=== PATIENT | female | born 2000 | race Caucasian/White ===

== ENCOUNTER 2024-05-05 16:22 | Emergency (ER) | payer OTHER, SELFPAY ==
[2024-05-05] VITALS (15 sets, daily range): BP systolic 96–137; BP diastolic 53–72; PULSE 58–93; RESP 16; TEMP 36.6; O2SAT 97–100; BMI 27.4
--- NOTE | 2024-05-05 19:52 | ED_ITS ---
HPI - General Adult General Chief complaint: Urogenital-Female Stated complaint: Severe Pain, Ovarian Cyst Time Seen by Provider: 05/05/24 19:52 Source: patient and family Mode of arrival: Ambulatory History of Present Illness HPI narrative: 23-year-old female with right-sided abdominopelvic pain, seen yesterday would be hospital with ultrasound showing hemorrhagic right-sided cyst, has increasing pain since that time. Also is on her period, believes her test was negative yesterday. No fevers or chills. No dysuria frequency of urination. No flank pain. She does not take blood thinner medications. Related Data Allergies Allergy/AdvReac Type Severity Reaction Status Date / Time Cephalosporins Allergy Verified 05/05/24 16:25 Penicillins Allergy Verified 05/05/24 16:25 Patient History Social History Smoking Status: Never smoker Smoking Status: Never smoker Exam Narrative Exam Narrative: GENERAL: Well-developed patient, in mild distress. HEAD: Atraumatic. Normocephalic. EYES: Pupils equal round and reactive. Extraocular motions intact. No scleral icterus. No injection or drainage. ENT: Nose without bleeding, purulent drainage. Throat without erythema, tonsillar hypertrophy or exudate. Airway patent. NECK: Trachea midline. Non tender CARDIOVASCULAR: Regular rate and rhythm without murmurs, gallops, or rubs. RESPIRATORY: Clear to auscultation. Breath sounds equal bilaterally. No wheezes, rales, or rhonchi. GASTROINTESTINAL: Abdomen soft, some tenderness right lower quadrant, no rebound tenderness. Nondistended. EXTREMITIES: No edema or joint tenderness. BACK: Nontender without deformity or crepitance. No flank tenderness. NEURO: AOx3. Motor functions grossly nonfocal SKIN: No rash or erythema of visible areas Initial Vital Signs Initial Vital Signs: Vital Signs Temperature 97.8 F 05/05/24 16:25 Pulse Rate 68 05/05/24 16:25 Respiratory Rate 16 05/05/24 16:25 Blood Pressure 137/72 05/05/24 16:25 Pulse Oximetry 97 05/05/24 16:25 Oxygen Delivery Method Room Air 05/05/24 16:25 Course Orders Ordered: ED Orders 05/05/24 20:12 US pelvic complete Stat 05/05/24 21:09 CBC Auto Diff [Complete Blood Count AUTO DIFF] Stat CMP [Comprehensive Metabolic Panel] Stat HCG Quantitative /Beta subunit Stat Discontinued Medications Ketorolac Tromethamine (Ketorolac 30 Mg/Ml Vial) 15 mg IV NOW ONE Stop: 05/05/24 20:12 Last Admin: 05/05/24 20:19 Dose: 15 mg Documented By: ROBERTO Potassium Chloride (Potassium Chloride 20 Meq/15 Ml Udc) 40 meq PO NOW ONE Stop: 05/05/24 21:42 Last Admin: 05/05/24 22:05 Dose: 40 meq Documented By: DEANNA Vital Signs Vital signs: Vital Signs - 8 hr 05/05/24 17:48 05/05/24 17:48 05/05/24 18:00 Pulse Rate 93 H Blood Pressure 124/61 109/58 L Pulse Oximetry 98 Oxygen Delivery Method 05/05/24 18:00 05/05/24 18:30 05/05/24 18:30 Pulse Rate 61 58 L Blood Pressure 112/69 Pulse Oximetry 98 100 Oxygen Delivery Method Room Air 05/05/24 19:00 05/05/24 19:00 05/05/24 19:43 Pulse Rate 61 72 Blood Pressure 111/67 Pulse Oximetry 100 98 Oxygen Delivery Method 05/05/24 20:00 05/05/24 20:30 05/05/24 21:00 Pulse Rate 64 62 63 Blood Pressure Pulse Oximetry 100 97 100 Oxygen Delivery Method Room Air 05/05/24 21:43 05/05/24 22:00 05/05/24 22:30 Pulse Rate 62 63 64 Blood Pressure Pulse Oximetry 98 98 98 Oxygen Delivery Method 05/05/24 22:48 05/05/24 22:48 05/05/24 23:00 Pulse Rate 63 66 Blood Pressure 96/53 L Pulse Oximetry 99 100 Oxygen Delivery Method 05/05/24 23:00 05/05/24 23:30 05/05/24 23:30 Pulse Rate 62 Blood Pressure 101/68 111/68 Pulse Oximetry 98 Oxygen Delivery Method Room Air Medical Decision Making Lab Data Lab results reviewed: Yes I reviewed the patient's lab results. Lab results narrative: White blood cell count 7300, hemoglobin 13.4, platelets adequate. BMP shows low potassium 3.3 otherwise negative. Liver functions unremarkable. Serum hCG negative. 05/05/24 21:09 05/05/24 21:09 Labs: Lab Results 05/05/24 Range/Units 21:09 WBC 7.3 (4.5-11.0) X10^3/uL RBC 4.30 (4.0-5.2) X10^6/uL Hgb 13.4 (12.0-16.0) g/dL Hct 40.0 (36-46) % MCV 93.2 (80-100) fL MCH 31.1 (26-34) PG MCHC 33.4 (30-36) % RDW 13.0 (11.6-14.8) % Plt Count 403 H (150-400) X10^3/uL Neut % (Auto) 42.1 L (50-75) % Lymph % (Auto) 44.6 H (25-40) % [place] % (Auto) 11.2 (3-14) % Eos % (Auto) 1.3 L (2-4) % Baso % (Auto) 0.8 (0-2) % Neut # (Auto) 3100 (5471-4602) /uL Lymph # (Auto) 3300 (7634-0827) /uL [place] # (Auto) 800 (0-900) /uL Eos # (Auto) 100 (0-450) /uL Baso # (Auto) 100 (0-100) /uL Sodium 136 L (137-145) mmol/L Potassium 3.3 L (3.4-5.1) mmol/L Chloride 107 (98-107) mmol/L Carbon Dioxide 24 (22-32) mmol/L BUN 9 (7-17) mg/dL Creatinine 0.62 (0.52-1.04) mg/dL Estimated GFR > 60 (>60) mL/min BUN/Creatinine Ratio 14.5 (6-22) Glucose 93 (70-100) mg/dL Calcium 8.7 (8.4-10.2) mg/dL Total Bilirubin 1.0 (0.2-1.3) mg/dL AST 28 (14-36) IU/L ALT 19 (<35) IU/L Alkaline Phosphatase 60 (38-126) U/L Total Protein 7.0 (6.3-8.2) g/dL Albumin 4.0 (3.5-5.0) g/dL Globulin 3.0 (1.7-4.1) g/dL Albumin/Globulin Ratio 1.3 (1.0-2.8) HCG, Quant < 2.39 mIU/mL Imaging Data Pelvic ultrasound non obstetric: Radiologist's Impression: [address] [address] Ultrasound Report Signed Patient: Juana Sweeney MR#: [id number] : 2000 Acct:[id number] Age/Sex: 23 / F Date of Service: 05/05/24 Loc: ED Accession Number: [id number] Procedure: US pelvic complete Ordering Provider: Will Saldivar MD PROCEDURE: US PELVIC COMPLETE INDICATIONS: ovarian cyst? TECHNIQUE: Real-time scanning was performed of the pelvic organs, with image documentation. Additional endovaginal scanning was necessary due to incomplete visualization of the adnexal and endometrial structures by transabdominal scanning. COMPARISON: None. FINDINGS: Uterus: Uterus is anteverted and normal in size at 8.7 x 3.9 x 4.6 cm. The myometrium is homogeneous. The endometrium measures 4 mm combined thickness. Ovaries: The right ovary measures 3.3 x 1.6 x 2 point cm, with a calculated ovarian volume of 8.0 cc. The left ovary measures 3.1 x 1.5 x 2.5 cm, with a calculated ovarian volume of 6.1 cc. The ovaries have a normal sonographic appearance. Less than 12 follicles can be seen in each ovary. No adnexal masses are seen. Other: No pathologic free abdominal or pelvic fluid. IMPRESSION: Normal sonographic appearance of the uterus and bilateral ovaries. Approved by: Dinorah Church M.D.,Ph.D. on 05/05/2024 at 23:20 MDM Narrative Medical decision making narrative: 23-year-old female with right pelvic/abdominal pain, diagnosis with ultrasound hemorrhagic cyst right side yesterday, increasing pain since that time, also with some vaginal bleeding. IV Toradol, declines opiate medication for now. We would like repeat imaging. Pelvic ultrasound requested. Records review outside facility. Ultrasound abdomen [facility], 05/05/24 @0230. Abdominal ultrasound, impressions: ?Appendix is not visualized. No secondary signs of inflammation in the right lower quadrant.? Records reviewed outside facility. Ultrasound pelvis [facility], 05/05/24 @0305. Pelvic ultrasound impressions: ?Normal sonographic appearance of the uterus. Right adnexal complex cystic structure measuring up to 2.3 cm, which may represent hemorrhagic cyst. Recommend follow up pelvic ultrasound in 6-12 weeks. Pelvic ultrasound no acute changes per sono tech report, await Radiology reading. We discussed additional imaging such as CT abdomen and pelvis, declined for now. She feels better after IV Toradol given here, we will take [id number] Tylenol and or Motrin medications. She will follow up at [facility]. Return precautions discussed Discharge Plan Departure Patient Disposition: Home Clinical Impression: Abdominal pain Instructions: DI for Abdominal Pain-Adult Activity Restrictions/Additional Instructions: Right-sided lower abdominal pain, recent ultrasound done at outside facility showed hemorrhagic ovarian cyst, still having pain today. No fever on triage. Some tenderness right lower quadrant region noted. HCG test negative here. Ultrasound done here shows normal pelvic organs, no free fluid, there is good blood flow to both ovaries, no description of any cystic structures. IV Toradol given, symptoms seemed to be improved. Consider continued oral anti- inflammatory medications like [id number] ibuprofen for pain control. We discussed in additional imaging such as CT abdomen and pelvis to look for appendicitis or colitis or other processes. This test was declined for now. Take [id number] anti-inflammatory medications as needed. Recheck if your symptoms are not continuing to improve in the next 12-24 hours. Return to this/nearest emergency department for any change worsening symptoms or any concerns prior Stand Alone Forms: Patient Portal/API/Survey
--- NOTE | 2024-05-05 20:12 | DI.US.S_ITS ---
PROCEDURE: US PELVIC COMPLETE INDICATIONS: ovarian cyst? TECHNIQUE: Real-time scanning was performed of the pelvic organs, with image documentation. Additional endovaginal scanning was necessary due to incomplete visualization of the adnexal and endometrial structures by transabdominal scanning. COMPARISON: None. FINDINGS: Uterus: Uterus is anteverted and normal in size at 8.7 x 3.9 x 4.6 cm. The myometrium is homogeneous. The endometrium measures 4 mm combined thickness. Ovaries: The right ovary measures 3.3 x 1.6 x 2 point cm, with a calculated ovarian volume of 8.0 cc. The left ovary measures 3.1 x 1.5 x 2.5 cm, with a calculated ovarian volume of 6.1 cc. The ovaries have a normal sonographic appearance. Less than 12 follicles can be seen in each ovary. No adnexal masses are seen. Other: No pathologic free abdominal or pelvic fluid. IMPRESSION: Normal sonographic appearance of the uterus and bilateral ovaries. Approved by: Dinorah Church M.D.,Ph.D. on 05/05/2024 at 23:20
[2024-05-05] MEDS: KETOROLAC 30 MG/ML VIAL 15 MG IV (20:19)
[2024-05-05 21:24] LABS: Add Manual Diff / Slide Review NO; Alanine Aminotransferase 19 IU/L (<35); Albumin Globulin Ratio 1.3 (1.0-2.8); Alkaline Phosphatase 60 U/L (38-126); Aspartate Aminotransferase 28 IU/L (14-36); BUN Creatinine Ratio 14.5 (6-22); Basophils Absolute Auto 100 /uL (0-100); Basophils Percent Auto 0.8 % (0-2); Blood Urea Nitrogen 9 mg/dL (7-17); Calcium 8.7 mg/dL (8.4-10.2); Carbon Dioxide 24 mmol/L (22-32); Chloride 107 mmol/L (98-107); Eosinophils Absolute Auto 100 /uL (0-450); Eosinophils Percent Auto 1.3 % (2-4); Estimated Glomerular Filt Rate > 60 mL/min (>60); Glucose 93 mg/dL (70-100); HEMOLYSIS 31 (0-50); Hemoglobin 13.4 g/dL (12.0-16.0); Lymphocytes Absolute Auto 3300 /uL (1100-4500); Lymphocytes Percent Auto 44.6 % (25-40); Mean Corpuscular HGB Conc 33.4 % (30-36); Mean Corpuscular Hemoglobin 31.1 PG (26-34); Mean Corpuscular Volume 93.2 fL (80-100); Monocytes Absolute Auto 800 /uL (0-900); Monocytes Percent Auto 11.2 % (3-14); Neutrophils Absolute Auto 3100 /uL (1500-7000); Neutrophils Percent Auto 42.1 % (50-75); Platelet Count 403 X10^3/uL (150-400); Potassium 3.3 mmol/L (3.4-5.1); Sodium 136 mmol/L (137-145); White Blood Cell Count 7.3 X10^3/uL (4.5-11.0)
[2024-05-05 21:41] LABS: HCG Quantitative /Beta subunit < 2.39 mIU/mL
[2024-05-05] MEDS: POTASSIUM CHLORIDE 20 MEQ/15 ML UDC 40 MEQ PO (22:05)
== END 2024-05-05 23:54 | disposition home or self-care (01) ==
PROVIDERS: Emergency Provider Emergency Medicine
DX: R10.31 Right lower quadrant pain (principal); R10.2 Pelvic and perineal pain
CPT/HCPCS: 36415; 76830; 76856; 80053; 84702; 85025; 96374; 99284; J1885